=== PATIENT | female | born 1940 | race Caucasian/White ===

== ENCOUNTER 2017-03-11 09:54 | Inpatient (IN) | payer OTHER ==
[~2017-03-11] VITALS: Ht 154.9 cm; Wt 63.7 kg
[2017-03-11 11:52] LABS: BASOPHILS # (AUTO) 0.02 x10^3/uL (0-0.1); BASOPHILS % (AUTO) 0 % (0-1); EOSINOPHILS # (AUTO) 0.08 x10^3/uL (0-0.4); EOSINOPHILS % (AUTO) 2 % (1-7); LYMPHOCYTES # (AUTO) 0.92 x10^3/uL (1-3.4); LYMPHOCYTES % (AUTO) 17 % (22-44); MD NO; MEAN CORPUSCULAR HGB CONC 34.6 g/dL (32.4-35.8); MEAN CORPUSCULAR VOLUME 89.4 fL (80-100); MEAN PLATELET VOLUME 7.7 fL (7.4-10.4); MONOCYTES # (AUTO) 0.74 x10^3/uL (0.2-0.8); MONOCYTES % (AUTO) 14 % (2-9); NEUTROPHILS # (AUTO) 3.52 x10^3/uL (1.8-6.8); NEUTROPHILS % (AUTO) 67 % (42-75); PLATELET COUNT 180 x10^3/uL (130-400); RED BLOOD COUNT 4.68 x10^6/uL (3.82-5.3); RED CELL DISTRIBUTION WIDTH 13.8 % (9.6-15.2)
[2017-03-11 12:05] LABS: ALBUMIN 3.6 g/dL (3.4-5.0); ANION GAP 9 mmol/L (5-15); CALCIUM 9.4 mg/dL (8.5-10.1); CHLORIDE 102 mmol/L (98-107); CREATININE 1.52 mg/dL (0.55-1.02)
[2017-03-11 12:08] LABS: TROPONIN I 0.028 ng/mL (0.000-0.045)
[2017-03-11] MEDS ORDERED: LEVOFLOXACIN/PMX 500MG/100ML 100 ML IV SCH (14:00)
[2017-03-11] MEDS ORDERED: LEVOFLOXACIN/PMX 500MG/100ML 100 ML ONE (14:14)
[2017-03-11 14:18] LABS: RAPID INFLUENZA A POSITIVE (Negative); RAPID INFLUENZA B Negative (Negative)
[2017-03-11] MEDS ORDERED: LABETALOL 5MG/ML, 20ML IVPush PRN (15:00)
[2017-03-11] MEDS ORDERED: POLYETHYLENE GLYCOL 17 GM PACKET PO PRN (15:00)
[2017-03-11] MEDS ORDERED: GUAIFENESIN/DM 200-20MG, 10ML UDC PO PRN (15:00)
[2017-03-11] MEDS ORDERED: ONDANSETRON ODT 4 MG PO PRN (15:00)
[2017-03-11] MEDS ORDERED: ONDANSETRON 2MG/ML, 2ML IVPush PRN (15:00)
[2017-03-11] MEDS ORDERED: methylPREDNISolone SOD SUCC 125 MG/2 ML IVPush SCH (15:30)
[2017-03-11] MEDS ORDERED: DIPHENHYDRAMINE 50 MG/ML, 1ML IVPush ONE (15:30)
[2017-03-11] MEDS ORDERED: DOXYCYCLINE 100MG TABLET PO SCH (15:30)
[2017-03-11] MEDS ORDERED: CEFTRIAXONE PMX 1GM/50ML 50 ML IV SCH ×2 (15:30→16:00)
[2017-03-11] MEDS ORDERED: HYDROcodone/APAP 5/325 TABLET ONE ×2 (16:12→16:56)
[2017-03-11] MEDS ORDERED: methylPREDNISolone SOD SUCC 125 MG/2 ML ONE (16:12)
[2017-03-11] MEDS: HYDROcodone/APAP 5/325 TABLET PO PRN ×3 (16:17→21:50)
[2017-03-11] MEDS ORDERED: CEFTRIAXONE PMX 1GM/50ML 50 ML ONE (16:26)
[2017-03-11] MEDS ORDERED: ENOXAPARIN 40 MG/0.4 ML ONE (16:56)
[2017-03-11] MEDS: ENOXAPARIN 40 MG/0.4 ML SQ SCH (16:59)
[2017-03-11] MEDS ORDERED: methylPREDNISolone SOD SUCC 125 MG/2 ML IVPush ONE (17:00)
[2017-03-11] MEDS: LINEZOLID PMX 600MG/300ML 300 ML IV SCH (18:26)
[2017-03-11] MEDS: GUAIFENESIN 200 MG TABLET PO SCH ×2 (18:28→21:49)
[2017-03-11] MEDS ORDERED: OSELTAMIVIR 30 MG CAPSULE PO SCH (19:00)
[2017-03-11] MEDS ORDERED: CEFTRIAXONE 1,000 MG in DEXTROSE 5% 50 ML IV SCH (19:01)
[2017-03-11 20:00] VITALS: BP 96/59
[2017-03-12 03:53] VITALS: BP 105/61
[2017-03-12 03:54] VITALS: BP_SYST 102; BP_SYST 106; BP_DIAS 65; BP_DIAS 67
[2017-03-12 05:39] LABS: CHLORIDE 101 mmol/L (98-107)
[2017-03-12 05:47] LABS: MEAN CORPUSCULAR HEMOGLOBIN 31.1 pg (27.0-34.8); MEAN CORPUSCULAR HGB CONC 34.9 g/dL (32.4-35.8); MEAN CORPUSCULAR VOLUME 89.1 fL (80-100); MEAN PLATELET VOLUME 7.9 fL (7.4-10.4); PLATELET COUNT 173 x10^3/uL (130-400); RED BLOOD COUNT 4.21 x10^6/uL (3.82-5.3); RED CELL DISTRIBUTION WIDTH 13.6 % (9.6-15.2)
[2017-03-12 05:52] LABS: ALANINE AMINOTRANSFERASE 29 U/L (12-78); ALBUMIN 3.3 g/dL (3.4-5.0); ALKALINE PHOSPHATASE 57 U/L (45-117); ANION GAP 10 mmol/L (5-15); BILIRUBIN,TOTAL 0.6 mg/dL (0.2-1.0); CALCIUM 9.2 mg/dL (8.5-10.1); CHOLESTEROL, TOTAL 180 mg/dL (140-239); CREATININE 1.19 mg/dL (0.55-1.02); HDL CHOL % 25 % (28-40); HDL CHOLESTEROL (DIRECT) 45 mg/dL (40-60); LDL CHOLESTEROL,CALCULATED 102 mg/dL (54-169); LDL/HDL RATIO 2.3 (0.5-3.0); TRIGLYCERIDES 163 mg/dL (50-200); VLDL CHOLESTEROL 33 mg/dL (0-25)
[2017-03-12] MEDS: LINEZOLID PMX 600MG/300ML 300 ML IV SCH ×2 (05:59→17:20)
[2017-03-12] MEDS: HYDROcodone/APAP 5/325 TABLET PO PRN ×3 (06:08→21:42)
[2017-03-12] MEDS: GUAIFENESIN 200 MG TABLET PO SCH ×4 (06:09→21:02)
[2017-03-12 06:24] LABS: BASOPHILS % (AUTO) 0 % (0-1); EOSINOPHILS % (AUTO) 0 % (1-7); LYMPHOCYTES # (AUTO) 0.79 x10^3/uL (1-3.4); LYMPHOCYTES % (AUTO) 34 % (22-44); MD SCAN; MONOCYTES # (AUTO) 0.18 x10^3/uL (0.2-0.8); MONOCYTES % (AUTO) 8 % (2-9); NEUTROPHILS # (AUTO) 1.39 x10^3/uL (1.8-6.8); NEUTROPHILS % (AUTO) 59 % (42-75)
[2017-03-12 07:55] VITALS: BP_SYST 117; BP_SYST 127; BP_SYST 128; BP_DIAS 67; BP_DIAS 70; BP_DIAS 76
[2017-03-12] MEDS ORDERED: POTASSIUM CHLORIDE 20 MEQ TAB.ER.PRT PO ONE (08:00)
[2017-03-12] MEDS ORDERED: OSELTAMIVIR 30 MG CAPSULE PO SCH ×2 (09:00)
[2017-03-12] MEDS: SENNA/DOCUSATE TABLET PO SCH (09:00)
[2017-03-12] MEDS: DOXYCYCLINE 100MG TABLET PO SCH ×2 (10:03→21:02)
[2017-03-12] MEDS: OSELTAMIVIR 30 MG CAPSULE PO SCH ×2 (11:34→21:03)
[2017-03-12 14:35] VITALS: BP_SYST 113; BP_SYST 116; BP_SYST 117; BP_DIAS 60; BP_DIAS 67; BP_DIAS 70
[2017-03-12] MEDS: ENOXAPARIN 40 MG/0.4 ML SQ SCH (16:31)
[2017-03-12 18:54] LABS: CLOSTRIDIUM DIFFICILE ANTIGEN NEGATIVE; CLOSTRIDIUM DIFFICILE TOXIN NEGATIVE (Negative)
[2017-03-12 19:14] VITALS: BP 143/89
[2017-03-13 01:08] VITALS: BP 104/63
[2017-03-13] MEDS: GUAIFENESIN 200 MG TABLET PO SCH ×4 (05:46→20:55)
[2017-03-13] MEDS: LINEZOLID PMX 600MG/300ML 300 ML IV SCH ×2 (05:46→18:32)
[2017-03-13] MEDS: HYDROcodone/APAP 5/325 TABLET PO PRN ×3 (05:46→20:55)
[2017-03-13 05:49] LABS: ANION GAP 5 mmol/L (5-15); CALCIUM 8.6 mg/dL (8.5-10.1); CHLORIDE 107 mmol/L (98-107)
[2017-03-13 05:51] LABS: BASOPHILS # (AUTO) 0.02 x10^3/uL (0-0.1); BASOPHILS % (AUTO) 0 % (0-1); EOSINOPHILS # (AUTO) 0.03 x10^3/uL (0-0.4); EOSINOPHILS % (AUTO) 1 % (1-7); LYMPHOCYTES # (AUTO) 1.85 x10^3/uL (1-3.4); LYMPHOCYTES % (AUTO) 32 % (22-44); MD NO; MEAN CORPUSCULAR HEMOGLOBIN 31.2 pg (27.0-34.8); MEAN CORPUSCULAR HGB CONC 34.8 g/dL (32.4-35.8); MEAN CORPUSCULAR VOLUME 89.5 fL (80-100); MEAN PLATELET VOLUME 8.1 fL (7.4-10.4); MONOCYTES # (AUTO) 0.57 x10^3/uL (0.2-0.8); MONOCYTES % (AUTO) 10 % (2-9); NEUTROPHILS % (AUTO) 58 % (42-75); PLATELET COUNT 171 x10^3/uL (130-400); RED BLOOD COUNT 4.07 x10^6/uL (3.82-5.3); RED CELL DISTRIBUTION WIDTH 13.5 % (9.6-15.2)
[2017-03-13 05:52] LABS: ALANINE AMINOTRANSFERASE 23 U/L (12-78); ALKALINE PHOSPHATASE 55 U/L (45-117); BILIRUBIN,TOTAL 0.7 mg/dL (0.2-1.0); TOTAL PROTEIN 6.5 g/dL (6.4-8.2)
[2017-03-13 07:48] VITALS: BP 115/68
[2017-03-13] MEDS: SENNA/DOCUSATE TABLET PO SCH (09:00)
[2017-03-13] MEDS: OSELTAMIVIR 30 MG CAPSULE PO SCH ×2 (09:49→20:55)
[2017-03-13] MEDS: DOXYCYCLINE 100MG TABLET PO SCH ×2 (09:49→20:55)
[2017-03-13 14:00] VITALS: BP 103/62
[2017-03-13] MEDS: ENOXAPARIN 40 MG/0.4 ML SQ SCH (16:58)
[2017-03-13] MEDS ORDERED: CEFTRIAXONE 1,000 MG in DEXTROSE 5% 50 ML IV SCH (17:00)
[2017-03-13 20:43] VITALS: BP 144/69
[2017-03-14] MEDS: HYDROcodone/APAP 5/325 TABLET PO PRN ×4 (01:41→19:44)
[2017-03-14 01:42] VITALS: BP 115/69
[2017-03-14] MEDS: LINEZOLID PMX 600MG/300ML 300 ML IV SCH ×2 (06:01→22:44)
[2017-03-14] MEDS: GUAIFENESIN 200 MG TABLET PO SCH ×4 (06:01→22:42)
[2017-03-14 07:19] VITALS: BP 123/71
[2017-03-14] MEDS ORDERED: SODIUM CHLORIDE INHALATION 7%, 4 ML NPPB ONE (08:30)
[2017-03-14 08:41] LABS: BASOPHILS # (AUTO) 0.04 x10^3/uL (0-0.1); BASOPHILS % (AUTO) 1 % (0-1); EOSINOPHILS # (AUTO) 0.17 x10^3/uL (0-0.4); EOSINOPHILS % (AUTO) 3 % (1-7); LYMPHOCYTES # (AUTO) 1.84 x10^3/uL (1-3.4); LYMPHOCYTES % (AUTO) 27 % (22-44); MD NO; MEAN CORPUSCULAR HEMOGLOBIN 30.8 pg (27.0-34.8); MEAN CORPUSCULAR HGB CONC 34.6 g/dL (32.4-35.8); MEAN CORPUSCULAR VOLUME 88.9 fL (80-100); MEAN PLATELET VOLUME 7.7 fL (7.4-10.4); MONOCYTES # (AUTO) 0.74 x10^3/uL (0.2-0.8); MONOCYTES % (AUTO) 11 % (2-9); NEUTROPHILS # (AUTO) 4.08 x10^3/uL (1.8-6.8); NEUTROPHILS % (AUTO) 59 % (42-75); PLATELET COUNT 171 x10^3/uL (130-400); RED BLOOD COUNT 4.51 x10^6/uL (3.82-5.3); RED CELL DISTRIBUTION WIDTH 13.3 % (9.6-15.2)
[2017-03-14] MEDS: SENNA/DOCUSATE TABLET PO SCH (09:00)
[2017-03-14] MEDS: OSELTAMIVIR 30 MG CAPSULE PO SCH ×2 (09:06→22:42)
[2017-03-14] MEDS: DOXYCYCLINE 100MG TABLET PO SCH ×2 (09:06→22:42)
[2017-03-14] MEDS ORDERED: OMNIPAQUE 350 MG/ML, 50 ML BOTTLE ONE (10:59)
[2017-03-14 13:39] VITALS: BP 128/69
[2017-03-14] MEDS ORDERED: CEFTRIAXONE 1,000 MG in SODIUM CHLORIDE 0.9% 50 ML IVPB SCH (17:00)
[2017-03-14] MEDS: ENOXAPARIN 40 MG/0.4 ML SQ SCH (17:52)
[2017-03-14 20:45] VITALS: BP 124/65
[2017-03-15 02:04] VITALS: BP 130/58
[2017-03-15] MEDS: GUAIFENESIN 200 MG TABLET PO SCH ×2 (06:18→11:34)
[2017-03-15] MEDS: HYDROcodone/APAP 5/325 TABLET PO PRN ×2 (06:18→13:43)
[2017-03-15 06:47] VITALS: BP 147/73
[2017-03-15 06:57] LABS: BASOPHILS # (AUTO) 0.02 x10^3/uL (0-0.1); BASOPHILS % (AUTO) 0 % (0-1); EOSINOPHILS # (AUTO) 0.26 x10^3/uL (0-0.4); EOSINOPHILS % (AUTO) 5 % (1-7); LYMPHOCYTES # (AUTO) 1.46 x10^3/uL (1-3.4); LYMPHOCYTES % (AUTO) 29 % (22-44); MD NO; MEAN CORPUSCULAR HEMOGLOBIN 31.2 pg (27.0-34.8); MEAN CORPUSCULAR HGB CONC 34.8 g/dL (32.4-35.8); MEAN CORPUSCULAR VOLUME 89.6 fL (80-100); MEAN PLATELET VOLUME 7.3 fL (7.4-10.4); MONOCYTES # (AUTO) 0.53 x10^3/uL (0.2-0.8); MONOCYTES % (AUTO) 11 % (2-9); NEUTROPHILS % (AUTO) 54 % (42-75); PLATELET COUNT 155 x10^3/uL (130-400); RED BLOOD COUNT 4.08 x10^6/uL (3.82-5.3); RED CELL DISTRIBUTION WIDTH 13.3 % (9.6-15.2)
[2017-03-15 07:06] LABS: ANION GAP 9 mmol/L (5-15); CALCIUM 7.8 mg/dL (8.5-10.1); CHLORIDE 108 mmol/L (98-107); CREATININE 0.66 mg/dL (0.55-1.02)
[2017-03-15] MEDS ORDERED: POTASSIUM CHLORIDE 20 MEQ TAB.ER.PRT PO ONE ×2 (08:00→11:00)
[2017-03-15] MEDS ORDERED: CEFD300C37 PO (08:02)
[2017-03-15] MEDS ORDERED: DOXY100T PO (08:02)
[2017-03-15] MEDS: SENNA/DOCUSATE TABLET PO SCH (08:03)
[2017-03-15] MEDS: OSELTAMIVIR 30 MG CAPSULE PO SCH (08:03)
[2017-03-15] MEDS: DOXYCYCLINE 100MG TABLET PO SCH (08:03)
[2017-03-15] MEDS ORDERED: GUAI200T3 PO (08:03)
[2017-03-15] MEDS ORDERED: OSEL30CA PO (08:04)
[2017-03-15] MEDS ORDERED: MAGNESIUM SULFATE PMX 2GM/50ML 50 ML IV ONE (08:30)
[2017-03-15 12:09] VITALS: BP 118/69
[2017-03-15 13:09] LABS: ANION GAP 8 mmol/L (5-15); CHLORIDE 107 mmol/L (98-107); CREATININE 0.68 mg/dL (0.55-1.02)
== END 2017-03-15 15:53 | disposition home or self-care (01) | DRG 551 ==
LOC: ED 13:28 → EDIP 13:46 → 4EST 18:55
PROVIDERS: ADMIT Hospitalist; ATTEND Hospitalist
PROC: 2W3FX1Z Immobilization of Left Hand using Splint (ICD-10-PCS; principal; 2017-03-11)
DX: M48.07 Spinal stenosis, lumbosacral region (principal); J15.20 Pneumonia due to staphylococcus, unspecified; J11.08 Influenza due to unidentified influenza virus with specified pneumonia; G90.8 Other disorders of autonomic nervous system; W18.39XA Other fall on same level, initial encounter; S62.317A Displaced fracture of base of fifth metacarpal bone, left hand, initial encounter for closed fracture; E78.5 Hyperlipidemia, unspecified; M81.0 Age-related osteoporosis without current pathological fracture; I10 Essential (primary) hypertension; M19.032 Primary osteoarthritis, left wrist; Y92.009 Unspecified place in unspecified non-institutional (private) residence as the place of occurrence of the external cause; Z85.828 Personal history of other malignant neoplasm of skin; Z87.891 Personal history of nicotine dependence; Z90.710 Acquired absence of both cervix and uterus; Z90.49 Acquired absence of other specified parts of digestive tract; Z88.0 Allergy status to penicillin; Z79.899 Other long term (current) drug therapy; Y93.89 Activity, other specified
CPT/HCPCS: 29125; 36415; 71045; 71260; 80048; 80053; 80061; 82040; 83735; 83880; 84443; 84484; 85025; 87040; 87070; 87205; 87324; 87400; 93005; 93306; 93880; 94640; 96365; 96374; J0696; J1650; J1956; J2020; J2405; Q9967; J2930; J3475